=== PATIENT | male | born 2000 ===

== ENCOUNTER 2023-03-19 21:44 | Emergency (ER) | payer OTHER, SELFPAY ==
--- NOTE | ~2023-03-19 | XR_ITS ---
EXAMINATION: XR WRIST, RIGHT XR HAND, RIGHT CLINICAL INFORMATION: Punched wood, swelling/pain. COMPARISON: None available. TECHNIQUE: PA, lateral, and oblique views of the right wrist and right hand. FINDINGS: Mildly displaced fracture at the base of the fifth metacarpal with surrounding soft tissue swelling. No unexpected radiopaque foreign bodies. No abnormal soft tissue calcifications. No additional fractures in the right hand nor right wrist. XR/XR hand wrist RT IMPRESSION: Mildly displaced fracture at the base of the fifth metacarpal.
[2023-03-19 21:52] VITALS: BP 121/70; PULSE 61; RESP 18; TEMP 36.9; O2SAT 98; BMI 21.3
[2023-03-19 22:25] VITALS: BP 118/62; PULSE 90; RESP 14; TEMP 36.9; O2SAT 96
--- NOTE | 2023-03-19 22:54 | ED_ITS ---
HPI - Extremity Problem General Chief complaint: Extremity Injury, Upper Stated complaint: broken wrist? Time Seen by Provider: 03/19/23 22:24 Source: patient, RN notes reviewed and old records reviewed Mode of arrival: ambulatory Limitations: no limitations History of Present Illness HPI Narrative: 22-year-old male presents for evaluation of right hand pain. Patient reports that he punched a piece of wood just prior to arrival He has pain to his right hand Denies any wrist pain He has a small scrape in between his 3rd and 4th fingers No other complaints or concerns at this time Related Data Allergies Allergy/AdvReac Type Severity Reaction Status Date / Time No Known Allergies Allergy Verified 03/19/23 21:51 Review of Systems Constitutional: Constitutional: Denies chills and Denies fever(s) Eyes: Eyes: Denies blurry vision Cardiovascular: Cardiovascular: Denies chest pain Musculoskeletal: Musculoskeletal: Reports arthralgias, Reports joint swelling and Reports limited range of motion PMFSH Social History Social History Advance Directives: No Advance Directives Information Provided: No Physical Exam Vital Signs: Vital Signs: Last Vital Signs Temp 98.4 F 03/19/23 22:25 Pulse 90 03/19/23 22:25 Resp 14 03/19/23 22:25 BP 118/62 03/19/23 22:25 Pulse Ox 96 03/19/23 22:25 O2 Del Method Room Air 03/19/23 22:25 BMI result Body Mass Index 21.3 Const: General: healthy appearing, comfortable, no acute distress, alert and awake Nutritional Appearance: well nourished Orientation/consciousness: patient oriented x3 HEENT: Head: Yes normocephalic and Yes atraumatic Eyes: Eyelids: Yes eyelids normal Conjunctivae: conjunctivae normal Sclerae: sclerae normal Corneas: corneas normal Pupils: Equal, round and reactive pupils present EOM: EOMs intact bilaterally Neck: Neck: Yes full ROM Resp: Effort & Inspection: normal respiratory effort, able to speak in complete sentences and not labored Skin: General skin exam: elasticity normal Neuro: General: patient oriented x3 Cranial nerves: Yes Equal, round and reactive pupils present and Yes Bilaterally intact EOM present Cognition (Neuro): normal cognition Extrem: Other: The patient has mild edema and tenderness to the basilar right 5th metacarpal. No significant lacerations. The patient does have a very small, superficial abrasion in between the right 3rd and 4th metacarpals. No active bleeding Medical Decision Making Medical Decision Making MDM Narrative: 22-year-old male presents for evaluation of right hand pain after punching a wall. He has a mildly displaced fracture of the right 5th metacarpal. He will be splinted with an ulnar gutter splint and follow-up with orthopedics. Patient does have a small abrasion, but this is not a deep laceration and does not warrant antibiotic coverage. It is still a closed fracture Differential Diagnosis Differential Diagnoses: The differential diagnosis associated with the presentation includes Hand sprain Contusion Hand fracture Dislocation Wrist sprain Independent Interpretation I performed an independent interpretation of an: Plain X-Ray (Agree with radiology interpretation) Radiology Impression Discussion of test interpretation with radiology: I have reviewed the radiologist's reading. (Mildly displaced fracture at the base of the 5th me tacarpal) Procedures Orthopedic Splinting/Casting Injury #1: Side: right Upper Extremity Injury Location: hand Upper Extremity Immobilizer: ulnar gutter Additional Comments: Postprocedure exam shows baseline neurovascular status. Patient is able to wiggle all fingers. Capillary refill intact. Discharge Plan Discharge Clinical Impression: Fracture of fifth metacarpal bone of right hand Patient Disposition: Home, Self-Care Instructions: Hand Fracture (ED) Additional Instructions: You have a fracture of the 5th metacarpal. Keep the splint in place until you follow-up with Orthopedics Use ibuprofen/Tylenol for pain Elevate your hand above your heart while resting Call tomorrow morning to schedule the orthopedics appointment Referrals: Alva Guillen MD [Physician] - (right 5th meracarpal fracture) Interventions: ED Discharge Assessment Last Done: 03/19/23 23:08 Discharge Date/Time: 03/19/23 23:09
--- NOTE | 2023-03-19 23:08 | PC.NURSE ---
ulnar gutter splint applied to right arm
== END 2023-03-19 23:09 | disposition home or self-care (01) ==
PROVIDERS: Emergency Provider Emergency Medicine; PCP Pediatrics
DX: S62.316A Displaced fracture of base of fifth metacarpal bone, right hand, initial encounter for closed fracture (principal); S60.511A Abrasion of right hand, initial encounter; W22.8XXA Striking against or struck by other objects, initial encounter; Y93.89 Activity, other specified; Y92.9 Unspecified place or not applicable; Y99.9 Unspecified external cause status
CPT/HCPCS: 29125; 73110; 73130; 99283

== ENCOUNTER 2023-03-25 09:47 | Outpatient (AMB) | payer OTHER, SELFPAY ==
--- NOTE | 2023-03-25 10:06 | A.OFFVIS_ITS ---
Intake Vital Signs 03/25/23 10:10 Height 5 ft 8 in Weight 139 lb BMI 21.1 Intake Visit Reasons: FC- 5th RT Metacarpal FX Intake Note: Tuyet a 22 year old left hand dominant male who presents today for an ER follow up of right 5th metacarpal fracture, DOI 03/19/23. Patient reports punching a piece of wood, presented to [facility] ED that same day where xrays were taken and placed in a splint. Currently pain comes with certain hand movements. Denies numbness or tingling. Allergies No Known Allergies Allergy (Verified 03/25/23 10:07) HPI FC- 5th RT Metacarpal FX HPI Details 22-year-old left hand dominant male who presents to the office today for right 5th metacarpal injury s/p punching a piece of wood, 03/19/23. He was seen at ED the same day where x-rays were performed and he was placed in a splint. He states he has pain in his finger with wearing and taking off clothes and with certain movements. He denies any numbness or tingling. [facility] Social History (Updated 03/25/23 @ 10:08 by MINGO Gracia) Patient Tobacco Use Status: Never used Tobacco Current occupational status: employed Current occupation: sales, left hand dominant Review of Systems Const All systems reviewed & are unremarkable except as noted in HPI and below Physical Exam Vital Signs: BMI result Body Mass Index 21.1 Const General: cooperative and no acute distress Orientation/consciousness: patient oriented x3 Resp Effort & Inspection: normal respiratory effort and able to speak in complete sentences Cardio Peripheral pulses: Peripheral pulses 2+ throughout Neuro General: patient oriented x3 Extrem Other: Right hand: Normal to inspection. He has mild discomfort at the base of the 5th metacarpal. No angulation or scissoring. He can fully extend and make a full fist. NVI. Office Procedures Casting/Splints 74770-Gtrr/Wrist Cast Application Procedure code (CPT) selection complete Fracture Care Fracture Billing Code: Fracture Billing Code Results Reviewed Results Reviewed: Xrays were obtained in the office today and personally reviewed by me of the right hand show a non displaced fracture at the base of the 3 and 5th metacarpal Assessment & Plan Assessment & Plan (1) Metacarpal bone fracture: Code(s): S62.309A - Unspecified fracture of unspecified metacarpal bone, initial encounter for closed fracture Qualifiers: Encounter type: initial encounter Metacarpal bone: unspecified metacarpal Fracture type: closed Metacarpal location: base Plan He was placed in a short arm cast. I did explain no lifting more than a cellphone and no impact activities. He did ask about when he can return to activities such as boxing which I encouraged him about no impact activities that include for at least 3 months from the DOI to ensure healing. He does verbalize understanding and I would like to see him back in 4 weeks with cast off and new x-rays, sooner if needed. Orders: Orders XR hand RT min 3V Today M79.641 - Pain in right hand Patient Instructions: Scribed for Jeffry May PA-C, by Ayo Godfrey spanish medical interpreter, on 03/25/2023 at 9:30 AM EST. I, Jeffry May PA-C, have personally reviewed and agree with the information entered by the scribe. Coding Level of Care Code New Pt Level 3 (26655) Diagnoses Metacarpal bone fracture S62.309A Encounter type: initial encounter Metacarpal bone: unspecified metacarpal Fracture type: closed Metacarpal location: base CPT Codes Casting - CPT: 87124-Udse/Wrist Cast Application ([id number]) Fracture Care - Fracture Billing Code: Fracture Billing Code ([id number])
[2023-03-25 10:10] VITALS: BMI 21.1
== END 2023-03-25 11:40 | disposition home or self-care (01) ==
PROVIDERS: PCP Pediatrics; Visit Provider Physician Assistant
DX: S62.302A Unspecified fracture of third metacarpal bone, right hand, initial encounter for closed fracture (principal); S62.306A Unspecified fracture of fifth metacarpal bone, right hand, initial encounter for closed fracture
CPT/HCPCS: 26600; 99203

== ENCOUNTER 2023-03-25 09:47 | Outpatient (REF) | payer OTHER, SELFPAY | END 2023-03-25 09:48 | disposition home or self-care (01) | LOC: HO.HOSX 09:47 | PROVIDERS: PCP Pediatrics; Visit Provider Physician Assistant | DX: S62.346A Nondisplaced fracture of base of fifth metacarpal bone, right hand, initial encounter for closed fracture (principal); S62.342A Nondisplaced fracture of base of third metacarpal bone, right hand, initial encounter for closed fracture | CPT/HCPCS: 26600; 73130; 99202 ==

== ENCOUNTER 2023-04-22 08:04 | Outpatient (REF) | payer OTHER, SELFPAY ==
--- NOTE | ~2023-04-22 | XR_ITS ---
EXAMINATION: XR HAND, RIGHT CLINICAL INFORMATION: Pain COMPARISON: Right hand radiograph from 03/25/2023 TECHNIQUE: PA, lateral, and oblique views of the right hand. FINDINGS: Redemonstration of a minimally displaced fracture involving the base of the fifth metacarpal with increased sclerosis of the fracture line. Joint spaces and alignment are otherwise maintained. Soft tissues are unremarkable. XR/XR hand RT min 3V IMPRESSION: Redemonstration of a minimally displaced fracture involving the base of the fifth metacarpal with increased sclerosis of the fracture line.
== END 2023-04-22 08:05 | disposition home or self-care (01) ==
LOC: HO.HOSX 08:04
PROVIDERS: Visit Provider Physician Assistant
DX: S62.346D Nondisplaced fracture of base of fifth metacarpal bone, right hand, subsequent encounter for fracture with routine healing (principal)
CPT/HCPCS: 73130; 99212

== ENCOUNTER 2023-04-22 09:42 | Outpatient (AMB) | payer OTHER, SELFPAY ==
[2023-04-22 09:58] VITALS: BMI 21.1
--- NOTE | 2023-04-22 09:58 | A.OFFVIS_ITS ---
Intake Vital Signs 04/22/23 09:58 Height 5 ft 8 in Weight 139 lb BMI 21.1 Intake Visit Reasons: ov- 5th RT Metacarpal FX Intake Note: Tuyet lees 22 year old male presents today for a follow up of right 5th metacarpal fx, DOI 03/19/23. Cast off and xrays updated. Patient reports he is doing well, he has discomfort in his wrist with cast off. Allergies No Known Allergies Allergy (Verified 04/22/23 09:59) HPI ov- 5th RT Metacarpal FX HPI Details 22-year-old male who returns to the [facility] today for a follow-up of right 5th metacarpal fracture, 03/19/23. He states he has discomfort in his wrist but is doing well overall. He has no other concerns today. [facility] Social History Patient Tobacco Use Status: Never used Tobacco Current occupational status: employed Current occupation: sales, left hand dominant Review of Systems Const All systems reviewed & are unremarkable except as noted in HPI and below Physical Exam Vital Signs: BMI result Body Mass Index 21.1 Const General: cooperative and no acute distress Orientation/consciousness: patient oriented x3 Resp Effort & Inspection: normal respiratory effort and able to speak in complete sentences Cardio Peripheral pulses: Peripheral pulses 2+ throughout Neuro General: patient oriented x3 Extrem Other: Right hand: Normal to inspection. No tenderness over the fracture site. No angulation or scissoring. He can fully extend and make a full fist. NVI. Results Reviewed Results Reviewed: Xrays were obtained in the office today and personally reviewed by me of the right hand show a non displaced fracture at the base of the 3 and 5th metacarpal with interval healing Assessment & Plan Assessment & Plan (1) Metacarpal bone fracture: Code(s): S62.309A - Unspecified fracture of unspecified metacarpal bone, initial encounter for closed fracture Qualifiers: Encounter type: subsequent encounter Fracture type: closed Metacarpal bone: unspecified metacarpal Metacarpal location: base Fracture healing: with routine healing Fracture alignment: nondisplaced Plan He was transitioned to Velcro wrist splint which he will wear with working and strenuous activities. He can remove the splint for low impact activities such as hygiene, sleeping and eating. I would like to see him back in 6 weeks with new x-rays, sooner if needed. Orders: Orders XR hand RT min 3V Today M79.641 - Pain in right hand Patient Instructions: Scribed for Jeffry May PA-C, by Ayo Godfrey medical microbiologist, on 04/22/2023 at 9:15 AM EST. I, Jeffry May PA-C, have personally reviewed and agree with the information entered by the scribe. Coding Level of Care Code Global (90532) Diagnoses Metacarpal bone fracture S62.309A Encounter type: subsequent encounter Fracture type: closed Metacarpal bone: unspecified metacarpal Metacarpal location: base Fracture healing: with routine healing Fracture alignment: nondisplaced
== END 2023-04-22 10:26 | disposition home or self-care (01) ==
PROVIDERS: PCP Pediatrics; Visit Provider Physician Assistant
DX: S62.309A Unspecified fracture of unspecified metacarpal bone, initial encounter for closed fracture (principal)
CPT/HCPCS: 99024

== ENCOUNTER 2023-06-03 06:05 | Outpatient (REF) | payer OTHER, SELFPAY | END 2023-06-03 06:06 | disposition home or self-care (01) | LOC: HO.HOSX 06:05 | PROVIDERS: Visit Provider Physician Assistant | DX: Z13.89 Encounter for screening for other disorder (principal) ==